=== PATIENT | male | born 1980 | race Caucasian/White ===

== ENCOUNTER 2016-06-20 10:59 | Emergency (ER) | payer SELFPAY ==
[2016-06-20 11:04] VITALS: BP 176/117; PULSE 82; RESP 18; TEMP 98.4; O2SAT 100
--- NOTE | 2016-06-20 11:09 | PD ---
Physical Exam Time Seen by Provider: 11:07 Narrative 36 y/o male presents for evaluation of right forearm laceration. Currently bandaged at triage desk. Kazakh speaker. Vital signs reviewed. Seen at triage desk. Awaiting bed placement. Data Data Last Documented VS Vital Signs Date Time Temp Pulse Resp B/P Pulse Ox O2 Delivery O2 Flow Rate FiO2 06/20/16 11:04 98.4 82 18 176/117 100 Room Air [facility] Medical Record Reviewed: Yes Supervised Visit with LAINA: Matty Arroyo June 20, 2016 11:09
--- NOTE | 2016-06-20 11:34 | PD ---
HPI Chief Complaint: Laceration/Skin Injury Time Seen by Provider: 11:33 Travel History International Travel<30 days: No Contact w/Intl Traveler<30days: No Traveled to known affect area: No History of Present Illness HPI 36-year-old right-hand dominant male with PMH of uncontrolled T2DM presents to the ED for evaluation of laceration of the right arm. Patient states that he was cleaning out a car and cut himself on a knife that was on the seat. He denies numbness, tingling, loss of strength or limitations to range of motion of the extremity. He is unsure of the date of his last tetanus immunization. NKDA. PFSH Past Medical History Diabetes: Yes Patient Takes Glucophage: No Diminished Hearing: No Tetanus Vaccination: Never Vaccinated Influenza Vaccination: No ?: Not Past Surgical History Surgical History: No Previous Surgery Social History Alcohol Use: Yes ([facility] beer) Tobacco Use: No Substance Use: No Allergies-Medications (Allergen,Severity, Reaction): Coded Allergies: No Known Allergies (Unverified , 06/20/16) Reported Meds & Prescriptions Reported Meds & Active Scripts Active Keflex (Cephalexin) 500 Mg Cap 500 Mg PO Q6H 10 Days Bactrim DS (Sulfamethoxazole-Trimethoprim) 800-160 Mg Tab 1 Tab PO BID Review of Systems Except as stated in HPI: all other systems reviewed are Neg Physical Exam Narrative GENERAL: Well-nourished, well-developed male in no acute distress. SKIN: Focused skin assessment warm/dry. There is a 3 cm laceration of the posterior aspect of the right forearm. No visible debris or active bleeding. HEAD: Normocephalic. EYES: No scleral icterus. No injection or drainage. NECK: Supple, trachea midline. No JVD or lymphadenopathy. CARDIOVASCULAR: Regular rate and rhythm without murmurs, gallops, or rubs. RESPIRATORY: Breath sounds equal bilaterally. No accessory muscle use. GASTROINTESTINAL: Abdomen soft, non-tender, nondistended. MUSCULOSKELETAL: No cyanosis, or edema. FOCUSED RIGHT UPPER EXTREMITY EXAM: 2+ radial pulse. Patient retains full, active, painless lateral limb of the extremity. Sensation intact to light touch distally. Cap refill less than 2 seconds. BACK: Nontender without obvious deformity. No CVA tenderness. Data Data Last Documented VS Vital Signs Date Time Temp Pulse Resp B/P Pulse Ox O2 Delivery O2 Flow Rate FiO2 06/20/16 11:04 98.4 82 18 176/117 100 Room Air Orders Tetanus/Diphtheria Tox Adult (Tetanus/Di (06/20/16 11:45) Lidocai-Epi 1%-1:100,000 Inj (Xylocaine- (06/20/16 11:45) MDM Medical Decision Making Medical Screen Exam Complete: Yes Emergency Medical Condition: Yes Differential Diagnosis Abrasion versus laceration versus tendinous injury versus retained foreign body versus need for tetanus immunization versus other Narrative Course 36-year-old right-hand dominant male with PMH of uncontrolled T2DM presents to the ED for evaluation of laceration of the right arm. Patient states that he was cleaning out a car and cut himself on a knife that was on the seat. He denies numbness, tingling, loss of strength or limitations to ROM of the extremity. He is unsure of the date of his last tetanus immunization. Vitals reviewed. Physical exam reveals a well-appearing male in no acute distress. There is a 5 cm laceration of the ulnar aspect of the forearm. Patient retains full, active, painless ROM of the extremity. Neurovascularly intact. Laceration repair was performed. Please see my procedure note for details. Patient was prescribed prophylactic Bactrim and Keflex, instructed to keep the wound clean, dry, covered, return for signs of insfection, suture removal in 7-10 days. 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 The patient is stable and discharged home. Procedures Procedure Narrative LACERATION LOCATION: Right forearm LENGTH: 5 cm NUMBER OF STITCHES/GWEN: 7 REPAIR: The area of the laceration was prepped with Betadine and sterilely draped. The laceration was infiltrated with 1% lidocaine with epinephrine. The wound was copiously irrigated and explored without evidence of foreign body, tendon injury or neurovascular injury. The wound was closed using 5-0 Prolene. This was a single layer repair. A sterile dressing was applied. The patient was advised to keep the dressing clean and dry. Patient tolerated the procedure well. Diagnosis Primary Impression: Laceration of right forearm without complication Qualified Code: S51.811A - Laceration of right forearm without complication, initial encounter Additional Impression: Immunization, tetanus toxoid Referrals: Primary Care Physician Patient Instructions: Care For Your Stitches (ED), General Instructions, Laceration (ED) Additional Instructions: Rest, hydrate. Do not change the dressing for 2 days. You may shower normally. Do not submerge the wound. After bathing pat of wound dry. Allow the wound to air dry for 10-15 minutes. Apply a thin layer of antibiotic ointment and a clean, dry dressing. Take the antibiotics as they are prescribed, even if your symptoms resolve. Utilize [id number] pain medications, as described on the label, as needed. Suture removal in 7-10 days. Return to the ED if the wound becomes warm, red, increased pain, or discharge. Return to the ED for any urgent or emergent medical condition. Med/Other Pt SpecificInfo: Prescription(s) given Scripts Cephalexin (Keflex)500 Mg [id number] Mg PO Q6H 10 Days Ref 0 Prov:Nathaniel Blanco MD 06/20/16 Sulfamethoxazole-Trimethoprim (Bactrim DS)800-160 Mg Tab1 Tab PO BID #14 TAB Ref 0 Prov:Nathaniel Blanco MD 06/20/16 Disposition: 01 DISCHARGE HOME Condition: Stable Polina Wolf June 20, 2016 11:34
[2016-06-20] MEDS ORDERED: LIDOCAINE 1%/EPINEPHrine 1:100,000 SOLN 20 ML VIAL INFIL ONE (11:45)
[2016-06-20] MEDS ORDERED: TETANUS/DIPHTHERIA TOXOID ADULT 0.5 ML VIAL IM ONE (11:45)
[2016-06-20] MEDS ORDERED: BACT800T5 PO (12:52)
[2016-06-20] MEDS ORDERED: CEPH-460 PO (12:52)
== END 2016-06-20 13:29 | disposition home or self-care (01) ==
LOC: NEPD 10:59
DX: S51.811A Laceration without foreign body of right forearm, initial encounter (principal); E11.9 Type 2 diabetes mellitus without complications; Z23 Encounter for immunization; W26.0XXA Contact with knife, initial encounter; Y93.H9 Activity, other involving exterior property and land maintenance, building and construction; Y92.810 Car as the place of occurrence of the external cause; Y99.8 Other external cause status
CPT/HCPCS: 12002; 90471; 90714

== ENCOUNTER 2016-06-27 13:31 | Emergency (ER) | payer SELFPAY ==
[~2016-06-27] VITALS: Ht 170.2 cm; Wt 75.0 kg
[~2016-06-27 13:31] MED LIST: BACT800T5 PO; CEPH-460 PO
[2016-06-27 13:34] VITALS: BP 164/97; PULSE 89; RESP 14; TEMP 98; O2SAT 99
--- NOTE | 2016-06-27 14:12 | PD ---
HPI Chief Complaint: Wound/Suture/Staple Re-Check Time Seen by Provider: 13:50 Travel History International Travel<30 days: No Contact w/Intl Traveler<30days: No Traveled to known affect area: No History of Present Illness HPI 36-year-old male presents to the emergency department for suture removal. Patient is Guyanese-speaking and has a family member present to translate for him. He was offered translation services but declined he better have his family member dressing for him. Patient reports he had sutures placed in the right forearm 8 days ago. He denies any pain, drainage, fever or chills. He reports he was unsure of when to come back to have them removed. He denies any significant past medical history. PFSH Past Medical History Medical History: Denies Significant Hx Diabetes: Yes Diminished Hearing: No Social History Alcohol Use: Yes ([facility] beer) Tobacco Use: No Substance Use: No Allergies-Medications (Allergen,Severity, Reaction): Coded Allergies: No Known Allergies (Unverified , 06/27/16) Reported Meds & Prescriptions Reported Meds & Active Scripts Active Keflex (Cephalexin) 500 Mg Cap 500 Mg PO Q6H 10 Days Bactrim DS (Sulfamethoxazole-Trimethoprim) 800-160 Mg Tab 1 Tab PO BID Review of Systems Except as stated in HPI: all other systems reviewed are Neg Physical Exam Narrative GENERAL: Well-nourished, well-developed patient. SKIN: Focused skin assessment warm/dry. Healing laceration to right forearm. Sutures intact. No evidence of infection. HEAD: Normocephalic. EYES: No scleral icterus. No injection or drainage. NECK: Supple, trachea midline. No JVD or lymphadenopathy. CARDIOVASCULAR: Regular rate and rhythm without murmurs, gallops, or rubs. RESPIRATORY: Breath sounds equal bilaterally. No accessory muscle use. GASTROINTESTINAL: Abdomen soft, non-tender, nondistended. MUSCULOSKELETAL: No cyanosis, or edema. BACK: Nontender without obvious deformity. No CVA tenderness. Data Data Last Documented VS Vital Signs Date Time Temp Pulse Resp B/P Pulse Ox O2 Delivery O2 Flow Rate FiO2 06/27/16 13:34 98.0 89 14 164/97 99 MDM Medical Decision Making Medical Screen Exam Complete: Yes Emergency Medical Condition: Yes Medical Record Reviewed: Yes Differential Diagnosis Wound recheck, suture removal Narrative Course 36-year-old male presents emergency department for possible suture removal. He sustained a laceration to the right forearm 8 days ago. He denies any pain, drainage, redness at the site. The area appears to be healing well. In my opinion the sutures need to stay in place for 3-5 more days. Patient agrees to return in 3-5 days for suture removal. Diagnosis Primary Impression: Encounter for wound re-check Referrals: Primary Care Physician Departure Forms: Tests/Procedures, Work Release Enter return to work date: July 03, 2016 Disposition: 01 DISCHARGE HOME Condition: Stable Vandana Zavala June 27, 2016 14:12
== END 2016-06-27 14:30 | disposition home or self-care (01) ==
LOC: NEPK 13:31
DX: Z48.02 Encounter for removal of sutures (principal)
CPT/HCPCS: 99281

== ENCOUNTER 2016-07-04 13:46 | Emergency (ER) | payer SELFPAY ==
[~2016-07-04] VITALS: Ht 170.2 cm; Wt 85.0 kg
[2016-07-04 13:48] VITALS: BP 157/98; TEMP 98.2; O2SAT 99
--- NOTE | 2016-07-04 13:58 | PD ---
Physical Exam Date Seen by Provider: July 04, 2016 Time Seen by Provider: 13:56 Narrative 36 yo male here for wound recheck. Had recent laceration to the right forearm sutured here at this hospital. here for suture removal. No other complaints. No pain. Vitals sign stable. Patient awaiting bed placement. Data Data Last Documented VS Vital Signs Date Time Temp Pulse Resp B/P Pulse Ox O2 Delivery O2 Flow Rate FiO2 07/04/16 13:48 98.2 84 14 157/98 99 MDM Medical Record Reviewed: Yes Supervised Visit with LAINA: Shawn Garcia July 04, 2016 13:58
--- NOTE | 2016-07-04 14:21 | PD ---
HPI Chief Complaint: Wound/Suture/Staple Re-Check Time Seen by Provider: 14:20 Travel History International Travel<30 days: No Contact w/Intl Traveler<30days: No Traveled to known affect area: No History of Present Illness HPI Patient is a 36-year-old Bahraini-speaking male presented to the emergency department to have stitches removed from left forearm. He is here with his family member who is able to speak Hungarian. Patient has no complaints at this time. [facility] Past Medical History Diabetes: Yes Diminished Hearing: No Social History Alcohol Use: Yes ([facility] beer) Tobacco Use: No Substance Use: No Allergies-Medications (Allergen,Severity, Reaction): Coded Allergies: No Known Allergies (Unverified , 06/27/16) Reported Meds & Prescriptions Reported Meds & Active Scripts Active Keflex (Cephalexin) 500 Mg Cap 500 Mg PO Q6H 10 Days Bactrim DS (Sulfamethoxazole-Trimethoprim) 800-160 Mg Tab 1 Tab PO BID Review of Systems Except as stated in HPI: all other systems reviewed are Neg Physical Exam Narrative GENERAL: Well-nourished, well-developed patient. SKIN: Focused skin assessment warm/dry. 3 cm healed laceration to his left forearm, sutures are intact, well approximated with no signs or symptoms of infection. HEAD: Normocephalic. EYES: No scleral icterus. No injection or drainage. NECK: Supple, trachea midline. No JVD or lymphadenopathy. CARDIOVASCULAR: Regular rate and rhythm without murmurs, gallops, or rubs. RESPIRATORY: Breath sounds equal bilaterally. No accessory muscle use. GASTROINTESTINAL: Abdomen soft, non-tender, nondistended. MUSCULOSKELETAL: No cyanosis, or edema. BACK: Nontender without obvious deformity. No CVA tenderness. Data Data Last Documented VS Vital Signs Date Time Temp Pulse Resp B/P Pulse Ox O2 Delivery O2 Flow Rate FiO2 07/04/16 13:48 98.2 84 14 157/98 99 [facility] Medical Decision Making Medical Screen Exam Complete: Yes Emergency Medical Condition: Yes Interpretation(s) Vital Signs Date Time Temp Pulse Resp B/P Pulse Ox O2 Delivery O2 Flow Rate FiO2 07/04/16 13:48 98.2 84 14 157/98 99 Differential Diagnosis Infection versus normal healing versus cellulitis versus other Narrative Course Patient is a 36-year-old male presenting to the emergency department have his stitches removed. Wound is well-healed and well approximated. Sutures were removed without difficulty. Patient was advised he can wash with soap and water. He is encouraged to follow-up with primary care or return to emergency department for any new or worsening symptoms. Patient is stable for discharge. Diagnosis Primary Impression: Encounter for removal of sutures Referrals: Primary Care Physician Patient Instructions: General Instructions Additional Instructions: Follow-up with your primary doctor Return to emergency department for any new or worsening symptoms Med/Other Pt SpecificInfo: No Change to Meds Disposition: 01 DISCHARGE HOME Condition: Stable Candida Gallagher July 04, 2016 14:21
== END 2016-07-04 14:38 | disposition home or self-care (01) ==
LOC: NEPK 13:46
DX: S51.812D Laceration without foreign body of left forearm, subsequent encounter (principal); Z48.02 Encounter for removal of sutures; X58.XXXD Exposure to other specified factors, subsequent encounter
CPT/HCPCS: 99281